=== PATIENT | male | born 1945 | race Caucasian/White ===

== ENCOUNTER → 2016-08-28 | Outpatient (CLI) | payer MEDICARE, OTHER | LOC: RAD 09:16 | PROVIDERS: ATTEND Specialist | DX: I26.99 Other pulmonary embolism without acute cor pulmonale (principal); K80.80 Other cholelithiasis without obstruction | CPT/HCPCS: 71275; 82565 ==

== ENCOUNTER → 2017-04-03 | Outpatient (CLI) | payer MEDICARE, OTHER ==
--- NOTE | 2017-04-03 09:52 | RADIOLOGY REPORT (SQ) ---
EXAM DESCRIPTION: CTA CHEST COMPLETED DATE/TIME: 04/03/2017 9:43 am REASON FOR STUDY: PE I26.99 OTHER PULMONARY EMBOLISM WITHOUT ACUTE COR PULMONALE COMPARISON: 08/28/2016. TECHNIQUE: CT scan of the chest performed using helical scanning technique with dynamic intravenous contrast injection. Images reviewed with lung, soft tissue and bone windows. Reconstructed coronal and sagittal MPR images reviewed. Additional 3 dimensional post-processing performed to develop Maximal Intensity Projection images (ME P). All images stored on PACS. All CT scanners at this facility use dose modulation, iterative reconstruction, and/or weight based d osing when appropriate to reduce radiation dose to as low as reasonably achievable (ALARA). [facility]: Dose Right [facility]: CareDose [facility]: Dose Right [facility]: Teradose 4D [facility]: [employer] CONTRAST TYPE AND DOSE: contrast/concentration: Isovue 370.00 mg/ml; Total Contrast Delivered: 79.0 ml; Total Saline Delivered: 102.0 ml Contrast bolus optimized for the pulmonary arteries. Not diagnostic for the aorta. RENAL FUNCTION: BUN 14 creatinine 0.9. RADIATION DOSE: . LIMITATIONS: None. FINDINGS: LUNGS AND PLEURA: No masses, infiltrates, pneumothorax. Incidental calcified granuloma. No pleural effusions, calcifications. AORTA AND GREAT VESSELS: No aneurysm. Contrast bolus not optimized for the aorta. HEART: No pericardial effusion. No significant coronary artery calcifications. PULMONARY ARTERIES: No emboli visualized in the main pulmonary arteries or the segmental branches. HILAR AND MEDIASTINAL STRUCTURES: No identified masses or abnormal nodes. Incidental calcified lymph nodes. HARDWARE: None in the chest. UPPER ABDOMEN: No significant findings. Limited exam. THYROID AND OTHER SOFT TISSUES: No masses. No adenopathy. BONES: No acute or significant finding. 3D MIPS: Confirm above findings. OTHER: No other significant finding. IMPRESSION: NORMAL CTA OF THE CHEST. NO PULMONARY EMBOLI. COMMENT: Quality ID # [id number]: Final reports with documentation of one or more dose reduction techniques (e.g., Automated exposure control, adjustment of the mA and/or kV according to patient size, use of iterative reconstruction technique) TECHNICAL DOCUMENTATION: JOB ID: [id number] [employer]- All Rights Reserved
== END ==
LOC: RAD 08:59
PROVIDERS: ATTEND Internal Medicine Hematology & Oncology
DX: I26.99 Other pulmonary embolism without acute cor pulmonale (principal)
CPT/HCPCS: 71275

== ENCOUNTER 2017-11-14 06:19 | Day surgery (SDC) | payer MEDICARE, OTHER ==
[~2017-11-14 06:19] MED LIST: KETOROLAC TROMETHAMINE 0.45% 4 DROP/0.4 ML DROPERETTE OS PRN
[2017-11-14] MEDS: BESIFLOXACIN HCL 0.6% OPH SUSP 5 ML BOTTLE OS PRN ×3 (06:44→07:52)
[2017-11-14] MEDS: CYCLOPENTOLATE 0.2%/PHENYLEPHRINE 1% OPH SOLN 2 ML OS PRN ×3 (06:44→07:09)
[2017-11-14] MEDS: TROPICAMIDE 1% OPH SOLN 3 ML OS PRN ×3 (06:44→07:09)
[2017-11-14] MEDS: TETRACAINE HCL 0.5% OPH SOLN 0.6 ML DROPERETTE OS PRN ×3 (06:44→07:33)
[2017-11-14] MEDS ORDERED: EPINEPHRINE INJ/PF 1 MG/1 ML AMPULE ONE (07:08)
[2017-11-14] MEDS ORDERED: CHONDR SU A NA/HYALUR INTRAOC KIT (SURGICARE) ONE (07:08)
[2017-11-14] MEDS ORDERED: LIDOCAINE 1% INJ-PF (10 MG/ML) 30 ML SDV ONE (07:08)
[2017-11-14] MEDS ORDERED: TOBRAMYCIN SULFATE/DEXAMETH OPH OINTMENT 3.5 GM ONE (07:08)
[2017-11-14] MEDS ORDERED: MIDAZOLAM 2 MG/2 ML INJ ONE (07:22)
== END 2017-11-14 08:27 | disposition home or self-care (01) ==
LOC: SC 06:19
PROVIDERS: ATTEND Ophthalmology
DX: H25.12 Age-related nuclear cataract, left eye (principal); M19.90 Unspecified osteoarthritis, unspecified site; E11.9 Type 2 diabetes mellitus without complications; K21.9 Gastro-esophageal reflux disease without esophagitis; I10 Essential (primary) hypertension; Z96.652 Presence of left artificial knee joint; Z79.51 Long term (current) use of inhaled steroids; Z79.01 Long term (current) use of anticoagulants; Z79.899 Other long term (current) drug therapy; Z79.84 Long term (current) use of oral hypoglycemic drugs
CPT/HCPCS: 66984; 82962; V2630; J2250; J3490 ×3; A9270; J0171; 142

== ENCOUNTER 2017-11-28 06:38 | Day surgery (SDC) | payer MEDICARE, OTHER ==
[~2017-11-28 06:38] MED LIST changes: +KETOROLAC TROMETHAMINE 0.45% 4 DROP/0.4 ML DROPERETTE OD PRN; -KETOROLAC TROMETHAMINE 0.45% 4 DROP/0.4 ML DROPERETTE OS PRN
[2017-11-28] MEDS: TETRACAINE HCL 0.5% OPH SOLN 0.6 ML DROPERETTE OD PRN ×3 (06:58→07:48)
[2017-11-28] MEDS: CYCLOPENTOLATE 0.2%/PHENYLEPHRINE 1% OPH SOLN 2 ML OD PRN ×3 (06:58→07:16)
[2017-11-28] MEDS: BESIFLOXACIN HCL 0.6% OPH SUSP 5 ML BOTTLE OD PRN ×3 (06:59→08:12)
[2017-11-28] MEDS: TROPICAMIDE 1% OPH SOLN 3 ML OD PRN ×3 (06:59→07:16)
[2017-11-28] MEDS ORDERED: EPINEPHRINE INJ/PF 1 MG/1 ML AMPULE ONE (07:09)
[2017-11-28] MEDS ORDERED: CHONDR SU A NA/HYALUR INTRAOC KIT (SURGICARE) ONE (07:09)
[2017-11-28] MEDS ORDERED: TOBRAMYCIN SULFATE/DEXAMETH OPH OINTMENT 3.5 GM ONE (07:09)
[2017-11-28] MEDS ORDERED: LIDOCAINE 1% INJ-PF (10 MG/ML) 30 ML SDV ONE (07:09)
[2017-11-28] MEDS ORDERED: MIDAZOLAM 2 MG/2 ML INJ ONE (07:40)
[2017-11-28] MEDS ORDERED: FENTANYL CITRATE INJ/PF 100 MCG/2 ML AMPUL ONE (07:40)
== END 2017-11-28 08:45 | disposition home or self-care (01) ==
LOC: SC 06:38
PROVIDERS: ATTEND Ophthalmology
DX: H25.11 Age-related nuclear cataract, right eye (principal); Z98.42 Cataract extraction status, left eye; M19.90 Unspecified osteoarthritis, unspecified site; E11.9 Type 2 diabetes mellitus without complications; K21.9 Gastro-esophageal reflux disease without esophagitis; I10 Essential (primary) hypertension; Z96.652 Presence of left artificial knee joint; E66.9 Obesity, unspecified; Z79.51 Long term (current) use of inhaled steroids; Z79.899 Other long term (current) drug therapy; Z79.01 Long term (current) use of anticoagulants; Z79.84 Long term (current) use of oral hypoglycemic drugs; Z68.38 Body mass index [BMI] 38.0-38.9, adult
CPT/HCPCS: 66984; 82962; V2630; J2250; J3490 ×3; A9270; J0171; J3010; 142

== ENCOUNTER → 2018-10-16 | Outpatient (CLI) | payer MEDICARE, OTHER ==
--- NOTE | 2018-10-17 08:53 | RADIOLOGY REPORT (SQ) ---
EXAM DESCRIPTION: MRI LT UPPER JOINT WITHOUT COMPLETED DATE/TIME: 10/16/2018 5:39 pm REASON FOR STUDY: M25.512 PAIN IN LEFT SHOULDER M25.512 PAIN IN LEFT SHOULDER COMPARISON: None. TECHNIQUE: Left shoulder images acquired and stored on PACS. Multiplanar imaging to include fat sens itive sequences such as T1, water sensitive sequences such as FST2/STIR, cartilage sensitive sequence s such as FSPD/gradient-echo sequences. LIMITATIONS: None. FINDINGS: BONE MARROW AND CORTEX: No worrisome bone lesions or marrow replacement. No occult fractur es. JOINT OR BURSAL EFFUSION: None. GLENO-HUMERAL ARTICULATION: Intact. Subchondral cyst and subchondral edema inferior glenoid. ACROMION AND AC JOINT: Type 2 acromion. Marked AC joint arthropathy. ROTATOR CUFF AND INTERVAL: Diffuse tendinosis. No full-thickness tear. No rotator interval tear. No rotator interval thickening to suggest adhesive capsulitis. LABRUM AND BICEPS LABRAL COMPLEX: Thickening and intermediate T2 signal in the intra-articular lorna ps. Distal biceps intact. REMAINDER OF LABRUM AND IGHL : Intact. PERIARTICULAR AND ADJACENT SOFT TISSUES: No masses or abnormal nodes. OTHER: No other significant finding. IMPRESSION: 1. Cuff tendinosis. No significant tear identified. 2. Advanced AC and glenohumeral joint arthropathy. 3. Biceps tendinosis. TECHNICAL DOCUMENTATION: JOB ID: [id number] [employer]- All Rights Reserved Reading location - IP/workstation name: [email or web address]
--- NOTE | 2018-10-20 14:07 | RADIOLOGY REPORT (SQ) ---
EXAM DESCRIPTION: MRI LT UPPER EXTREMITY COMBO COMPLETED DATE/TIME: 10/16/2018 5:39 pm REASON FOR STUDY: M25.512 PAIN IN LEFT SHOULDER M25.512 PAIN IN LEFT SHOULDER COMPARISON: Radiographs 10/09/2018. TECHNIQUE: Multiplanar imaging of the left proximal humerus to include T1-weighted, postcontrast T1- weighted, and T2-weighted images. CONTRAST TYPE AND DOSE: 20 mL Dotarem. RENAL FUNCTION: GFR > 60. LIMITATIONS: None. FINDINGS: BONE MARROW: Marrow signal is normal. There is focal spurring off the anterolateral humer us in the region of radiographic calcification. This is at the site of the deltoid insertion. SOFT TISSUES: No soft tissue mass. No axillary adenopathy. Deltoid and other regional muscles look normal. No abnormal enhancement with gadolinium. OTHER: No other significant finding. IMPRESSION: 1. No suspicious mass. 2. Radiographs show focal nonaggressive calcification along the humerus. MRI shows this to be relate d to a "tug" lesion or reflect chronic partial deltoid avulsion. TECHNICAL DOCUMENTATION: JOB ID: [id number] [employer]- All Rights Reserved Reading location - IP/workstation name: [email or web address]
== END ==
LOC: RAD 15:17
PROVIDERS: ATTEND Physician Assistant
DX: M25.512 Pain in left shoulder (principal); R22.32 Localized swelling, mass and lump, left upper limb

== ENCOUNTER 2019-06-04 15:31 | Emergency (ER) | payer MEDICARE, OTHER ==
--- NOTE | 2019-06-04 15:45 | ER Document Report ---
ED Medical Screen (RME) - General Chief Complaint: Chest Pain Stated Complaint: CHEST PAIN Time Seen by Provider: 06/04/19 15:43 Primary Care Provider: ARNULFO SHEARER MD [Primary Care Provider] - Follow up as needed Mode of Arrival: Ambulatory Information source: Patient Notes: 73-year-old male presented to ED for complaint of chest pain to the mid substernal area. He states he never had chest pain until he did a clean induced stress test and at that time the doctor 20 if you have a had that pain again to go to the hospital. He states a week ago he had similar pain and he called his doctor and then he had it again yesterday and then again today. He states when he had a today he called his doctor and his doctor told him to get over to the hospital right away. Patient is alert oriented respirations regular nonlabored speaking in full sentences. He does have a history of blood pressure no other cardiac problems. He states he does drink sociable he does not drink or do any drugs. Patient is on Eliquis and states he was told not to take aspirin I have greeted and performed a rapid initial assessment of this patient. A comprehensive ED assessment and evaluation of the patient, analysis of test results and completion of medical decision making process will be conducted by an additional ED providers. TRAVEL OUTSIDE OF THE [place] 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 Denies: Hx Open Heart Surgery, Hx Pacemaker - Immunizations Hx Diphtheria, Pertussis, Tetanus Vaccination: Yes - <5 years Physical Exam - Vital signs Vitals: Temp Pulse Resp BP Pulse Ox 97.8 F 86 18 135/53 H 97 06/04/19 15:39 06/04/19 15:39 06/04/19 15:39 06/04/19 15:39 06/04/19 15:39 Course - Vital Signs Vital signs: Temp Pulse Resp BP Pulse Ox 97.8 F 86 18 135/53 H 97 06/04/19 15:39 06/04/19 15:39 06/04/19 15:39 06/04/19 15:39 06/04/19 15:39 Doctor's Discharge - Discharge Referrals: ARNULFO SHEARER MD [Primary Care Provider] - Follow up as needed
[2019-06-04 16:22] LABS: ABSOLUTE BASOPHILS # (AUTO) 0.1 10^3/uL (0.0-0.2); ABSOLUTE EOSINOPHILS # (AUTO) 0.1 10^3/uL (0.0-0.6); ABSOLUTE LYMPHOCYTES (AUTO) 1.3 10^3/uL (0.5-4.7); ABSOLUTE MONOCYTES (AUTO) 0.6 10^3/uL (0.1-1.4); ABSOLUTE NEUT (AUTO) 4.1 10^3/uL (1.7-8.2); BASOPHILS % (AUTO) 1.3 % (0-2); EOSINOPHILS % (AUTO) 0.9 % (0-6); HEMATOCRIT 44.2 % (37.9-51.0); HEMOGLOBIN 14.8 g/dL (13.5-17.0); MEAN CORPUSCULAR HEMOGLOBIN 28.9 pg (27.0-33.4); MEAN CORPUSCULAR HGB CONC 33.4 g/dL (32.0-36.0); MEAN CORPUSCULAR VOLUME 86 fl (80-97); MONOCYTES % (AUTO) 9.2 % (3-13); PLATELET COUNT 218 10^3/uL (150-450); RED BLOOD COUNT 5.12 10^6/uL (4.35-5.55); RED CELL DISTRIBUTION WIDTH 15.4 % (11.5-14.0); SEGMENTED NEUTROPHILS % (AUTO) 67.6 % (42-78); TOTAL CELLS COUNTED % (AUTO) 100 %; WHITE BLOOD COUNT 6.1 10^3/uL (4.0-10.5)
--- NOTE | 2019-06-04 16:27 | RADIOLOGY REPORT (SQ) ---
EXAM DESCRIPTION: CHEST 2 VIEWS COMPLETED DATE/TIME: 06/04/2019 4:03 pm REASON FOR STUDY: chest pain COMPARISON: AP view of the chest from 05/16/2011. EXAM PARAMETERS: NUMBER OF VIEWS: two views TECHNIQUE: Digital Frontal and Lateral radiographic views of the chest acquired. RADIATION DOSE: NA LIMITATIONS: none FINDINGS: LUNGS AND PLEURA: No consolidation, pleural effusion or pneumothorax. MEDIASTINUM AND HILAR STRUCTURES: No mediastinal or hilar contour abnormality. HEART AND VASCULAR STRUCTURES: The cardiomediastinal silhouette and pulmonary vasculature are within normal limits. BONES: No acute findings. HARDWARE: None in the chest. OTHER: No other finding. IMPRESSION: No acute cardiopulmonary process. TECHNICAL DOCUMENTATION: JOB ID: [id number] [employer]- All Rights Reserved Reading location - IP/workstation name: [email or web address]
[2019-06-04 16:42] LABS: ALBUMIN 4.2 g/dL (3.5-5.0); ALKALINE PHOSPHATASE 84 U/L (38-126); ANION GAP 11 (5-19); ASPARTATE AMINO TRANSFERASE 22 U/L (17-59); BILIRUBIN,DIRECT 0.2 mg/dL (0.0-0.4); BILIRUBIN,TOTAL 0.7 mg/dL (0.2-1.3); BLOOD UREA NITROGEN 15 mg/dL (7-20); CALCIUM 9.4 mg/dL (8.4-10.2); CARBON DIOXIDE 24 mmol/L (22-30); CHLORIDE 107 mmol/L (98-107); GLUCOSE 155 mg/dL (75-110); POTASSIUM 4.1 mmol/L (3.6-5.0); TOTAL PROTEIN 7.3 g/dL (6.3-8.2)
--- NOTE | 2019-06-04 17:06 | ER Document Report ---
ED General - General Chief Complaint: Chest Pain Stated Complaint: CHEST PAIN Time Seen by Provider: 06/04/19 15:43 Primary Care Provider: ARNULFO SHEARER MD [Primary Care Provider] - Follow up as needed Mode of Arrival: Ambulatory TRAVEL OUTSIDE OF THE [place] IN LAST 30 DAYS: No - HPI Notes: Patient is a 73-year-old male with a history of diabetes and pulmonary embolus presents emergency department for evaluation of left-sided chest pain. He had his first episode about a week ago. It was similar to when he had had a pharmacological stress test about 5 years ago. He states it happened while he was drinking coffee at about 6:00 in the morning. Pain lasted for 15 minutes or so. He states it was intense and sharp, nonradiating. He denied any associated shortness of breath, nausea, diaphoresis, near syncope. No associated dizziness. He states it was worsened somewhat by taking deep breaths, nothing seems to make it better. He had 2 more episodes of this pain, both yesterday morning and this morning, although much less intense per patient. Again he denied any radiation of the pain, no associated symptoms. He has been taking his medications as prescribed. 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 Family History: None Patient has suicidal ideation: No Patient has homicidal ideation: No - Medical History Medical History: Other - Hemochromatosis - Past Medical History Cardiac Medical History: Reports: Hx Hypercholesterolemia - BORDERLINE, NO MEDS, Hx Hypertension, Hx Pulmonary Embolism Denies: Hx Coronary Artery Disease, Hx Heart Attack Pulmonary Medical History: Denies: Hx Asthma Neurological Medical History: Denies: Hx Cerebrovascular Accident, Hx Seizures Endocrine Medical History: Reports: 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 Denies: Hx Open Heart Surgery, Hx Pacemaker - Immunizations Hx Diphtheria, Pertussis, Tetanus Vaccination: Yes - <5 years Review of Systems - Review of Systems Constitutional: No symptoms reported EENT: No symptoms reported Cardiovascular: See HPI Respiratory: No symptoms reported Gastrointestinal: No symptoms reported Genitourinary: No symptoms reported Musculoskeletal: No symptoms reported Skin: No symptoms reported Neurological/Psychological: No symptoms reported Physical Exam - Vital signs Vitals: Temp Pulse Resp BP Pulse Ox 97.8 F 86 18 135/53 H 97 06/04/19 15:39 06/04/19 15:39 06/04/19 15:39 06/04/19 15:39 06/04/19 15:39 - Notes Notes: Vital signs reviewed, please refer to chart. Head is normocephalic, atraumatic. Pupils equal round, reactive to light. Neck is supple without meningismus. Heart is regular rate and rhythm. Lungs are clear to auscultation bilaterally. Examination of the chest wall yields a 1 x 2 cm lesion, consistent with recent biopsy, just to the left of the sternum at approximately the fourth rib. No surrounding induration or erythema. Abdomen is soft, nontender, normoactive bowel sounds throughout. Extremities without cyanosis, clubbing. Posterior calves are nontender. Peripheral pulses are equal. Skin is warm and dry. Patient is awake, alert, neurological exam is nonfocal. Course - Re-evaluation Re-evalutation: 06/04/19 17:35 Patient is a 73-year-old woman who presents emergency department for evaluation of left-sided chest pain. It is atypical, sharp in nature. He does have a history of pulmonary embolus. He states his been taking his medication as prescribed, but I am concerned about the possibility of this contributing to his pain. CT angiogram of the chest was ordered. I explained to the patient that I cannot rule out coronary artery disease based on any testing given here. He denies any exertional chest pain. He states he is pretty active. He does, however, have significant risk factors, including being overweight, diabetic, hypertensive, hyper lipidemia. I explained to him that he needs to follow-up with his primary care provider and discuss the possibility of an outpatient st ress test. He voiced understanding to this. Patient has been chest pain-free since about 6:00 this morning. We will continue to monitor. 06/04/19 19:59 Patient remained chest pain-free throughout the entire course of his stay. Again his pain lasted only a few minutes in the mornings. It was not exertional. We talked at length about possible etiology of this, and he understands I cannot rule out a cardiac etiology, but his symptoms would be atypical and I believe outpatient follow-up is appropriate. His CT angiogram failed to reveal any signs of pulmonary embolus. He needs to discuss further differential diagnosis and treatment with his primary care physician, and is encouraged to follow-up next week. He is amenable to this plan and was discharged. - Vital Signs Vital signs: Temp Pulse Resp BP Pulse Ox 97.8 F 86 26 H 128/87 H 96 06/04/19 15:39 06/04/19 15:39 06/04/19 19:11 06/04/19 19:11 06/04/19 19:11 - Laboratory Result Diagrams: 06/04/19 15:54 06/04/19 15:54 Laboratory results interpreted by me: 06/04/19 06/04/19 06/04/19 15:54 15:54 19:07 RDW 15.4 H Glucose 155 H Lipase 22.1 L Urine Glucose (UA) >=500 H - Diagnostic Test Radiology reviewed: Reports reviewed Radiology results interpreted by me: 06/04/19 17:36 Chest X-Ray 06/04/19 15:46 IMPRESSION: No acute cardiopulmonary process. - EKG Interpretation by Me Additional EKG results interpreted by me: 06/04/19 17:37 Sinus mechanism with a rate of 81 bpm. Normal axis and intervals, no acute ST changes concerning for ischemia or infarction. Discharge - Discharge Clinical Impression: Chest pain Qualifiers: Chest pain type: unspecified Qualified Code(s): R07.9 - Chest pain, unspecified Condition: Stable Disposition: HOME, SELF-CARE Instructions: Chest Pain of Unclear Cause ([facility]) Additional Instructions: No clear cause was found for your chest pain today. Please follow-up with your primary care provider next week. If you develop increased pain, difficulty breathing, or any other new or concerning symptoms, please return immediately to the emergency department for reevaluation. Referrals: ARNULFO SHEARER MD [Primary Care Provider] - Follow up as needed
--- NOTE | 2019-06-04 18:56 | RADIOLOGY REPORT (SQ) ---
EXAM DESCRIPTION: CTA CHEST COMPLETED DATE/TIME: 06/04/2019 6:40 pm REASON FOR STUDY: left sided chest pain, h/o PE COMPARISON: CT angio chest 05/16/2011, 02/15/2016, 08/28/2016, 04/03/2017 TECHNIQUE: CT scan of the chest performed using helical scanning technique with dynamic intravenous contrast injection. Images reviewed with lung, soft tissue and bone windows. Reconstructed coronal and sagittal MPR images reviewed. Additional 3 dimensional post-processing performed to develop Maximal Intensity Projection images (VT P). All images stored on PACS. All CT scanners at this facility use dose modulation, iterative reconstruction, and/or weight based d osing when appropriate to reduce radiation dose to as low as reasonably achievable (ALARA). [facility]: Dose Right [facility]: CareDose [facility]: Dose Right [facility]: Teradose 4D [facility]: [facility] CONTRAST TYPE AND DOSE: contrast/concentration: Isovue 350.00 mg/ml; Total Contrast Delivered: 72.0 ml; Total Saline Delivered: 80.0 ml Contrast bolus optimized for the pulmonary arteries and thoracic aorta. RENAL FUNCTION: Creatinine 1.0 RADIATION DOSE: CT Rad equipment meets quality standard of care and radiation dose reduction techniq ues were employed. CTDIvol: 26.4 - 28.0 mGy. DLP: 1118 mGy-cm. . LIMITATIONS: None. FINDINGS: LUNGS AND PLEURA: No masses, infiltrates, or pneumothorax. No pleural effusions or pleura l calcifications. Benign calcified granuloma right posterior costophrenic sulcus AORTA AND GREAT VESSELS: No thoracic aortic aneurysm or dissection. HEART: No pericardial effusion. No significant coronary artery calcifications. PULMONARY ARTERIES: No emboli visualized in the main pulmonary arteries or the segmental branches. HILAR AND MEDIASTINAL STRUCTURES: No identified masses or abnormal nodes. HARDWARE: None in the chest. UPPER ABDOMEN: Calcified stone in the gallbladder THYROID AND OTHER SOFT TISSUES: Bilateral gynecomastia BONES: No acute or significant finding. 3D MIPS: Confirm above findings. OTHER: No other significant finding. IMPRESSION: No acute findings COMMENT: Quality ID # [id number]: Final reports with documentation of one or more dose reduction techniques (e.g., Automated exposure control, adjustment of the mA and/or kV according to patient size, use of iterative reconstruction technique) TECHNICAL DOCUMENTATION: JOB ID: [id number]- All Rights Reserved Reading location - IP/workstation name: [email or web address]
[2019-06-04 19:34] LABS: APPEARANCE,URINE CLEAR; BILIRUBIN,URINE NEGATIVE (NEGATIVE); COLOR,URINE YELLOW; GLUCOSE, URINE >=500 mg/dL (NEGATIVE); KETONES,URINE NEGATIVE (NEGATIVE); PROTEIN,URINE NEGATIVE (NEGATIVE); UROBILINOGEN,URINE NEGATIVE mg/dL (<2.0)
[2019-06-04 20:07] VITALS: BP 125/72
--- NOTE | 2019-06-04 23:35 | EKG REPORT ---
SEVERITY:- NORMAL ECG - SINUS RHYTHM : Confirmed by: Dieter Choi 04-Jun-2019 23:34:54
== END 2019-06-04 20:07 | disposition home or self-care (01) ==
LOC: ER 15:31
DX: R07.89 Other chest pain (principal); I10 Essential (primary) hypertension; E66.3 Overweight; E11.9 Type 2 diabetes mellitus without complications; E78.5 Hyperlipidemia, unspecified; Z86.711 Personal history of pulmonary embolism; Z88.0 Allergy status to penicillin
CPT/HCPCS: 36415; 71046; 71275; 80053; 81001; 83690; 84484; 85025; 93005; 93010; 99285